=== PATIENT | female | born 1965 | race Caucasian/White ===

== ENCOUNTER 2023-01-19 11:15 | Inpatient (IN) | payer OTHER ==
[2023-01-19 11:46] VITALS: BMI 18.8
[2023-01-19] MEDS ORDERED: guaiFENesin 600 MG TABLET.ER (FP) PO PRN (12:28)
[2023-01-19] MEDS ORDERED: ONDANSETRON *ODT* 4 MG TABLET SL PRN (12:28)
[2023-01-19] MEDS ORDERED: ACETAMINOPHEN 325 MG TABLET (FP) PO PRN (12:28)
[2023-01-19] MEDS ORDERED: MAGNESIUM HYDROX 2400MG/30ML ORAL SUSPENSION 30 ML CUP PO PRN (12:28)
[2023-01-19] MEDS ORDERED: LOPERAMIDE HCL 2 MG CAPSULE PO PRN (12:28)
[2023-01-19] MEDS ORDERED: BISMUTH SUBSALICYLATE 262 MG/15 ML BTL PO PRN (12:28)
[2023-01-19] MEDS ORDERED: MAG HYDROX/AL HYDROX/SIMETH 30 ML UNIT-DOSE CUP PO PRN (12:28)
[2023-01-19] MEDS ORDERED: BENZOCAINE/MENTHOL (CHLORASEPTIC ) LOZENGE MM PRN (12:28)
[2023-01-19] MEDS ORDERED: NALOXONE HCL (KLOXXADO) 8 MG SPRAY NS PRN (12:28)
[2023-01-19] MEDS ORDERED: IBUPROFEN 400 MG TABLET (FP) PO PRN (12:28)
[2023-01-19] MEDS ORDERED: POLYETHYLENE GLYCOL (HEALTHYLAX) 3350 17 GM PACKET PO PRN (12:28)
[2023-01-19] MEDS ORDERED: BENZONATATE 200 MG CAPSULE PO PRN (12:28)
[2023-01-19] MEDS ORDERED: IBUPROFEN 600 MG TABLET (FP) PO PRN (12:28)
[2023-01-19] MEDS ORDERED: NALOXONE HCL 0.4 MG/ML VIAL IM PRN (12:28)
[2023-01-19] MEDS ORDERED: hydrOXYzine PAMOATE 25 MG CAPSULE (FP) PO PRN (12:28)
[2023-01-19] MEDS ORDERED: NICOTINE POLACRILEX 2 MG GUM BUC PRN (12:28)
[2023-01-19] MEDS: chlordiazePOXIDE HCL 25 MG CAPSULE PO PRN (13:59)
[2023-01-19] MEDS: chlordiazePOXIDE HCL 25 MG CAPSULE PO SCH ×2 (17:36→22:10)
[2023-01-19] MEDS: MELATONIN 5 MG TABLETS PO SCH (22:09)
[2023-01-19] MEDS: traZODone HCL 50 MG TABLET (FP) PO SCH (22:09)
[2023-01-19] MEDS: THIAMINE HCL 100 MG TABLET (FP) PO SCH (22:09)
[2023-01-20] MEDS: chlordiazePOXIDE HCL 25 MG CAPSULE PO SCH ×4 (05:45→22:17)
[2023-01-20] MEDS ORDERED: methaDONE HCL 10 MG TABLET PO SCH (07:37)
[2023-01-20 09:30] LABS: HEMATOCRIT 34.9 % (32.4-45.2); HEMOGLOBIN 11.6 GM/dL (10.7-15.3); MCH 28.2 pg (25.7-33.7); MCHC 33.4 g/dl (32.0-36.0); MEAN CELL VOLUME 84.3 fl (80-96); MEAN PLT VOLUME 7.8 fl (7.5-11.1); PLATELET COUNT 220 10^3/uL (134-434); RBC 4.13 M/mm3 (3.60-5.2); RDW 16.4 % (11.6-15.6); WHITE BLOOD COUNT 3.6 K/mm3 (4.0-10.0)
[2023-01-20 09:54] LABS: CALCIUM 8.7 mg/dL (8.5-10.1)
[2023-01-20 09:56] LABS: ALBUMIN 2.7 g/dl (3.4-5.0); BLOOD UREA NITROGEN 18.6 mg/dL (7-18)
[2023-01-20 09:58] LABS: CREATININE 0.6 mg/dL (0.55-1.3)
[2023-01-20 10:00] LABS: BILIRUBIN,TOTAL 0.1 mg/dL (0.2-1); TOT PROT 6.4 g/dl (6.4-8.2)
[2023-01-20] MEDS: NICOTINE 14 MG/24 HOURS TOPICAL PATCH TD SCH (10:47)
[2023-01-20] MEDS: PRENATAL VITAMINS W/ FOLIC ACID TABLET (FP) PO SCH (10:47)
[2023-01-20 12:01] LABS: POTASSIUM 4.1 mmol/L (3.5-5.1)
[2023-01-20] MEDS: chlordiazePOXIDE HCL 25 MG CAPSULE PO PRN (19:20)
[2023-01-20] MEDS: THIAMINE HCL 100 MG TABLET (FP) PO SCH (22:16)
[2023-01-20] MEDS: traZODone HCL 50 MG TABLET (FP) PO SCH (22:16)
[2023-01-20] MEDS: MELATONIN 5 MG TABLETS PO SCH (22:16)
[2023-01-21] MEDS: chlordiazePOXIDE HCL 25 MG CAPSULE PO SCH ×3 (05:37→18:51)
[2023-01-21 09:11] VITALS: RESP 18
[2023-01-21] MEDS: PRENATAL VITAMINS W/ FOLIC ACID TABLET (FP) PO SCH (10:23)
[2023-01-21] MEDS: NICOTINE 14 MG/24 HOURS TOPICAL PATCH TD SCH (10:23)
[2023-01-21 13:02] VITALS: BP 98/64; PULSE 64; TEMP 96.7
[2023-01-22] MEDS ORDERED: chlordiazePOXIDE HCL 10 MG CAPSULE PO PRN
[2023-01-22] MEDS ORDERED: chlordiazePOXIDE HCL 10 MG CAPSULE PO SCH (05:00)
[2023-01-23] MEDS ORDERED: chlordiazePOXIDE HCL 10 MG CAPSULE PO SCH (05:00)
[2023-01-24] MEDS ORDERED: chlordiazePOXIDE HCL 10 MG CAPSULE PO ONE (05:00)
== END 2023-01-21 16:08 | disposition left against medical advice (07) | DRG 770 ==
LOC: YASAS 11:15 → Y3N 13:07
PROVIDERS: ADMIT Allergy & Immunology; ATTEND Surgery
PROC: HZ2ZZZZ Detoxification Services for Substance Abuse Treatment (ICD-10-PCS; principal; 2023-01-19)
DX: F10.230 Alcohol dependence with withdrawal, uncomplicated (principal); F11.20 Opioid dependence, uncomplicated; F14.20 Cocaine dependence, uncomplicated; F17.210 Nicotine dependence, cigarettes, uncomplicated; F31.9 Bipolar disorder, unspecified; F41.9 Anxiety disorder, unspecified; G47.00 Insomnia, unspecified; J45.20 Mild intermittent asthma, uncomplicated; Z87.828 Personal history of other (healed) physical injury and trauma
CPT/HCPCS: 36415; 80053; 85027; 86780; 87635; 93005; 93010

== ENCOUNTER 2023-02-16 13:37 | Inpatient (IN) | payer OTHER ==
[2023-02-16 14:36] VITALS: BMI 18.3
[2023-02-16] MEDS ORDERED: NALOXONE HCL 0.4 MG/ML VIAL IM PRN (15:32)
[2023-02-16] MEDS ORDERED: LOPERAMIDE HCL 2 MG CAPSULE PO PRN (15:32)
[2023-02-16] MEDS ORDERED: ACETAMINOPHEN 325 MG TABLET (FP) PO PRN (15:32)
[2023-02-16] MEDS ORDERED: NALOXONE HCL (KLOXXADO) 8 MG SPRAY NS PRN (15:32)
[2023-02-16] MEDS ORDERED: NICOTINE POLACRILEX 2 MG GUM BUC PRN (15:32)
[2023-02-16] MEDS ORDERED: guaiFENesin 600 MG TABLET.ER (FP) PO PRN (15:32)
[2023-02-16] MEDS ORDERED: ONDANSETRON *ODT* 4 MG TABLET SL PRN (15:32)
[2023-02-16] MEDS ORDERED: BENZONATATE 200 MG CAPSULE PO PRN (15:32)
[2023-02-16] MEDS ORDERED: MAG HYDROX/AL HYDROX/SIMETH 30 ML UNIT-DOSE CUP PO PRN (15:32)
[2023-02-16] MEDS ORDERED: IBUPROFEN 400 MG TABLET (FP) PO PRN (15:32)
[2023-02-16] MEDS ORDERED: BISMUTH SUBSALICYLATE 262 MG/15 ML BTL PO PRN (15:32)
[2023-02-16] MEDS ORDERED: POLYETHYLENE GLYCOL (HEALTHYLAX) 3350 17 GM PACKET PO PRN (15:32)
[2023-02-16] MEDS ORDERED: MAGNESIUM HYDROX 2400MG/30ML ORAL SUSPENSION 30 ML CUP PO PRN (15:32)
[2023-02-16] MEDS ORDERED: BENZOCAINE/MENTHOL (CHLORASEPTIC ) LOZENGE MM PRN (15:32)
[2023-02-16] MEDS ORDERED: chlordiazePOXIDE HCL 25 MG CAPSULE PO PRN (15:37)
[2023-02-16] MEDS: chlordiazePOXIDE HCL 25 MG CAPSULE PO SCH ×2 (17:39→22:30)
[2023-02-16] MEDS: hydrOXYzine PAMOATE 25 MG CAPSULE (FP) PO PRN (17:40)
[2023-02-16] MEDS: IBUPROFEN 600 MG TABLET (FP) PO PRN (20:35)
[2023-02-16] MEDS ORDERED: MELATONIN 5 MG TABLETS PO SCH (22:00)
[2023-02-16] MEDS: THIAMINE HCL 100 MG TABLET (FP) PO SCH (22:30)
[2023-02-16] MEDS: METHOCARBAMOL 500 MG TABLET PO PRN (22:31)
[2023-02-17] MEDS: chlordiazePOXIDE HCL 25 MG CAPSULE PO SCH ×4 (05:35→22:20)
[2023-02-17] MEDS: PRENATAL VITAMINS W/ FOLIC ACID TABLET (FP) PO SCH (10:31)
[2023-02-17 10:36] LABS: CHLORIDE 102 mmol/L (98-107); SODIUM 137 mmol/L (136-145)
[2023-02-17] MEDS ORDERED: DICYCLOMINE HCL 10 MG CAPSULE PO ONE (10:38)
[2023-02-17 10:39] LABS: HEMATOCRIT 38.1 % (32.4-45.2); HEMOGLOBIN 12.6 GM/dL (10.7-15.3); MCH 27.9 pg (25.7-33.7); MEAN CELL VOLUME 84.5 fl (80-96); MEAN PLT VOLUME 7.8 fl (7.5-11.1); PLATELET COUNT 260 10^3/uL (134-434); RBC 4.51 M/mm3 (3.60-5.2); RDW 16.3 % (11.6-15.6)
[2023-02-17 10:46] LABS: ALBUMIN 2.9 g/dl (3.4-5.0); ANION GAP 7 mmol/L (4-13); BLOOD UREA NITROGEN 19.4 mg/dL (7-18); CO2 28 mmol/L (21-32); GLUCOSE,RANDOM 127 mg/dL (74-106)
[2023-02-17 10:49] LABS: CREATININE 0.8 mg/dL (0.55-1.3); SGOT/AST 13 U/L (15-37); SGPT/ALT 10 U/L (13-61)
[2023-02-17 10:51] LABS: BILIRUBIN,TOTAL 0.9 mg/dL (0.2-1); TOT PROT 6.7 g/dl (6.4-8.2)
[2023-02-17 10:52] LABS: ALK PHOS 67 U/L (45-117)
[2023-02-17] MEDS ORDERED: methaDONE HCL 10 MG TABLET PO ONE (11:05)
[2023-02-17] MEDS: hydrOXYzine PAMOATE 25 MG CAPSULE (FP) PO PRN ×2 (17:16→22:21)
[2023-02-17] MEDS: traZODone HCL 50 MG TABLET (FP) PO SCH (22:19)
[2023-02-17] MEDS: THIAMINE HCL 100 MG TABLET (FP) PO SCH (22:20)
[2023-02-18] MEDS: chlordiazePOXIDE HCL 25 MG CAPSULE PO SCH ×4 (05:35→22:44)
[2023-02-18] MEDS ORDERED: methaDONE HCL 10 MG TABLET PO SCH (06:00)
[2023-02-18] MEDS: PRENATAL VITAMINS W/ FOLIC ACID TABLET (FP) PO SCH (11:37)
[2023-02-18] MEDS: SULFAMETHOXAZOLE/TRIMETHOPRIM 800MG/160MG D.S. TABLET PO SCH ×2 (11:38→22:44)
[2023-02-18] MEDS: VITAMINS A AND D TOPICAL OINTMENT 60 GM TUBE TP SCH ×2 (13:05→18:16)
[2023-02-18] MEDS: hydrOXYzine PAMOATE 25 MG CAPSULE (FP) PO PRN (17:47)
[2023-02-18] MEDS: IBUPROFEN 600 MG TABLET (FP) PO PRN (19:42)
[2023-02-18] MEDS: traZODone HCL 50 MG TABLET (FP) PO SCH (22:44)
[2023-02-18] MEDS: THIAMINE HCL 100 MG TABLET (FP) PO SCH (22:44)
[2023-02-19] MEDS ORDERED: chlordiazePOXIDE HCL 10 MG CAPSULE PO PRN
[2023-02-19] MEDS: VITAMINS A AND D TOPICAL OINTMENT 60 GM TUBE TP SCH ×5 (00:40→23:13)
[2023-02-19] MEDS: chlordiazePOXIDE HCL 10 MG CAPSULE PO SCH ×4 (05:32→22:37)
[2023-02-19] MEDS: PRENATAL VITAMINS W/ FOLIC ACID TABLET (FP) PO SCH (10:28)
[2023-02-19] MEDS: SULFAMETHOXAZOLE/TRIMETHOPRIM 800MG/160MG D.S. TABLET PO SCH ×2 (10:28→22:37)
[2023-02-19] MEDS: IBUPROFEN 600 MG TABLET (FP) PO PRN (10:32)
[2023-02-19] MEDS: hydrOXYzine PAMOATE 25 MG CAPSULE (FP) PO PRN ×3 (14:47→22:38)
[2023-02-19] MEDS: METHOCARBAMOL 500 MG TABLET PO PRN ×2 (17:21→22:37)
[2023-02-19] MEDS: traZODone HCL 50 MG TABLET (FP) PO SCH (22:37)
[2023-02-19] MEDS: THIAMINE HCL 100 MG TABLET (FP) PO SCH (22:37)
[2023-02-20] MEDS: chlordiazePOXIDE HCL 10 MG CAPSULE PO SCH ×2 (05:46→17:09)
[2023-02-20] MEDS: VITAMINS A AND D TOPICAL OINTMENT 60 GM TUBE TP SCH ×3 (05:57→17:27)
[2023-02-20] MEDS: SULFAMETHOXAZOLE/TRIMETHOPRIM 800MG/160MG D.S. TABLET PO SCH ×2 (09:29→22:31)
[2023-02-20] MEDS: PRENATAL VITAMINS W/ FOLIC ACID TABLET (FP) PO SCH (09:29)
[2023-02-20] MEDS: hydrOXYzine PAMOATE 25 MG CAPSULE (FP) PO PRN (17:10)
[2023-02-20] MEDS: METHOCARBAMOL 500 MG TABLET PO PRN ×2 (17:10→22:31)
[2023-02-20] MEDS: THIAMINE HCL 100 MG TABLET (FP) PO SCH (22:31)
[2023-02-20] MEDS: traZODone HCL 50 MG TABLET (FP) PO SCH (22:31)
[2023-02-21] MEDS: VITAMINS A AND D TOPICAL OINTMENT 60 GM TUBE TP SCH ×3 (00:58→12:19)
[2023-02-21] MEDS ORDERED: chlordiazePOXIDE HCL 10 MG CAPSULE PO ONE (05:00)
[2023-02-21] MEDS: SULFAMETHOXAZOLE/TRIMETHOPRIM 800MG/160MG D.S. TABLET PO SCH (09:30)
[2023-02-21] MEDS: PRENATAL VITAMINS W/ FOLIC ACID TABLET (FP) PO SCH (09:30)
[2023-02-21 12:32] VITALS: BP 123/75; PULSE 79; RESP 18; TEMP 97.8
== END 2023-02-21 12:58 | disposition home or self-care (01) | DRG 773 ==
LOC: YASAS 13:37 → Y6N 16:27
PROVIDERS: ADMIT Allergy & Immunology; ATTEND Surgery
PROC: HZ2ZZZZ Detoxification Services for Substance Abuse Treatment (ICD-10-PCS; principal; 2023-02-16)
DX: F10.230 Alcohol dependence with withdrawal, uncomplicated (principal); F11.20 Opioid dependence, uncomplicated; F14.20 Cocaine dependence, uncomplicated; F12.20 Cannabis dependence, uncomplicated; F17.210 Nicotine dependence, cigarettes, uncomplicated; F19.282 Other psychoactive substance dependence with psychoactive substance-induced sleep disorder; F19.280 Other psychoactive substance dependence with psychoactive substance-induced anxiety disorder; F39 Unspecified mood [affective] disorder; F41.9 Anxiety disorder, unspecified; J45.20 Mild intermittent asthma, uncomplicated; Z62.810 Personal history of physical and sexual abuse in childhood; Z91.410 Personal history of adult physical and sexual abuse; Z86.2 Personal history of diseases of the blood and blood-forming organs and certain disorders involving the immune mechanism
CPT/HCPCS: 36415; 80053; 80307; 85027; 86780; 87635

== ENCOUNTER 2023-03-02 10:59 | Inpatient (IN) | payer OTHER ==
[2023-03-02 11:25] VITALS: BMI 19.3
[2023-03-02] MEDS ORDERED: LOPERAMIDE HCL 2 MG CAPSULE PO PRN (12:13)
[2023-03-02] MEDS ORDERED: guaiFENesin 600 MG TABLET.ER (FP) PO PRN (12:13)
[2023-03-02] MEDS ORDERED: MAGNESIUM HYDROX 2400MG/30ML ORAL SUSPENSION 30 ML CUP PO PRN (12:13)
[2023-03-02] MEDS ORDERED: DICYCLOMINE HCL 10 MG CAPSULE PO PRN (12:13)
[2023-03-02] MEDS ORDERED: POLYETHYLENE GLYCOL (HEALTHYLAX) 3350 17 GM PACKET PO PRN (12:13)
[2023-03-02] MEDS ORDERED: BENZONATATE 200 MG CAPSULE PO PRN (12:13)
[2023-03-02] MEDS ORDERED: NICOTINE POLACRILEX 4 MG GUM BUC PRN (12:13)
[2023-03-02] MEDS ORDERED: BISMUTH SUBSALICYLATE 262 MG/15 ML BTL PO PRN (12:13)
[2023-03-02] MEDS ORDERED: IBUPROFEN 400 MG TABLET (FP) PO PRN (12:13)
[2023-03-02] MEDS ORDERED: BENZOCAINE/MENTHOL (CHLORASEPTIC ) LOZENGE MM PRN (12:13)
[2023-03-02] MEDS ORDERED: MAG HYDROX/AL HYDROX/SIMETH 30 ML UNIT-DOSE CUP PO PRN (12:13)
[2023-03-02] MEDS ORDERED: NALOXONE HCL 0.4 MG/ML VIAL IM PRN (12:13)
[2023-03-02] MEDS ORDERED: ONDANSETRON *ODT* 4 MG TABLET SL PRN (12:13)
[2023-03-02] MEDS ORDERED: ACETAMINOPHEN 325 MG TABLET (FP) PO PRN (12:13)
[2023-03-02] MEDS ORDERED: NALOXONE HCL (KLOXXADO) 8 MG SPRAY NS PRN (12:13)
[2023-03-02] MEDS ORDERED: hydrOXYzine PAMOATE 25 MG CAPSULE (FP) PO PRN (12:13)
[2023-03-02] MEDS ORDERED: PRENATAL VITAMINS W/ FOLIC ACID TABLET (FP) PO ONE (13:32)
[2023-03-02] MEDS: PRENATAL VITAMINS W/ FOLIC ACID TABLET (FP) PO SCH (13:40)
[2023-03-02] MEDS: chlordiazePOXIDE HCL 25 MG CAPSULE PO PRN (14:23)
[2023-03-02] MEDS: chlordiazePOXIDE HCL 25 MG CAPSULE PO SCH ×2 (17:48→22:26)
[2023-03-02] MEDS: MELATONIN 5 MG TABLETS PO SCH (22:24)
[2023-03-02] MEDS: traZODone HCL 50 MG TABLET (FP) PO SCH (22:25)
[2023-03-02] MEDS: THIAMINE HCL 100 MG TABLET (FP) PO SCH (22:25)
[2023-03-03] MEDS: chlordiazePOXIDE HCL 25 MG CAPSULE PO SCH ×4 (05:40→22:55)
[2023-03-03] MEDS ORDERED: methaDONE HCL 10 MG TABLET PO SCH (06:00)
[2023-03-03] MEDS: IBUPROFEN 600 MG TABLET (FP) PO PRN ×2 (08:59→20:15)
[2023-03-03] MEDS: PRENATAL VITAMINS W/ FOLIC ACID TABLET (FP) PO SCH (10:10)
[2023-03-03 11:56] LABS: POTASSIUM 4.3 mmol/L (3.5-5.1)
[2023-03-03 12:02] LABS: ALBUMIN 3.2 g/dl (3.4-5.0); BLOOD UREA NITROGEN 16.3 mg/dL (7-18)
[2023-03-03 12:04] LABS: HEMATOCRIT 37.2 % (32.4-45.2); HEMOGLOBIN 12.2 GM/dL (10.7-15.3); MCHC 32.9 g/dl (32.0-36.0); MEAN CELL VOLUME 85.1 fl (80-96); PLATELET COUNT 306 10^3/uL (134-434); RBC 4.37 M/mm3 (3.60-5.2); RDW 16.3 % (11.6-15.6); WHITE BLOOD COUNT 4.3 K/mm3 (4.0-10.0)
[2023-03-03 12:05] LABS: CREATININE 0.7 mg/dL (0.55-1.3)
[2023-03-03 12:06] LABS: BILIRUBIN,TOTAL 0.3 mg/dL (0.2-1); TOT PROT 7.4 g/dl (6.4-8.2)
[2023-03-03] MEDS: THIAMINE HCL 100 MG TABLET (FP) PO SCH (22:23)
[2023-03-03] MEDS: traZODone HCL 50 MG TABLET (FP) PO SCH (22:23)
[2023-03-03] MEDS: MELATONIN 5 MG TABLETS PO SCH (22:23)
[2023-03-03] MEDS: chlordiazePOXIDE HCL 25 MG CAPSULE PO PRN (23:47)
[2023-03-04] MEDS: chlordiazePOXIDE HCL 25 MG CAPSULE PO SCH ×4 (06:06→22:14)
[2023-03-04] MEDS: PRENATAL VITAMINS W/ FOLIC ACID TABLET (FP) PO SCH (10:16)
[2023-03-04] MEDS: MELATONIN 5 MG TABLETS PO SCH (22:14)
[2023-03-04] MEDS: THIAMINE HCL 100 MG TABLET (FP) PO SCH (22:14)
[2023-03-04] MEDS: traZODone HCL 50 MG TABLET (FP) PO SCH (22:14)
[2023-03-05] MEDS ORDERED: chlordiazePOXIDE HCL 10 MG CAPSULE PO PRN
[2023-03-05] MEDS: METHOCARBAMOL 500 MG TABLET PO PRN ×3 (01:12→17:33)
[2023-03-05] MEDS: chlordiazePOXIDE HCL 10 MG CAPSULE PO SCH ×4 (05:32→22:15)
[2023-03-05] MEDS: IBUPROFEN 600 MG TABLET (FP) PO PRN (06:58)
[2023-03-05] MEDS: PRENATAL VITAMINS W/ FOLIC ACID TABLET (FP) PO SCH (10:03)
[2023-03-05] MEDS: traZODone HCL 50 MG TABLET (FP) PO SCH (22:15)
[2023-03-05] MEDS: MELATONIN 5 MG TABLETS PO SCH (22:15)
[2023-03-05] MEDS: THIAMINE HCL 100 MG TABLET (FP) PO SCH (22:15)
[2023-03-06] MEDS: chlordiazePOXIDE HCL 10 MG CAPSULE PO SCH ×2 (05:57→17:51)
[2023-03-06] MEDS: IBUPROFEN 600 MG TABLET (FP) PO PRN (06:00)
[2023-03-06] MEDS: PRENATAL VITAMINS W/ FOLIC ACID TABLET (FP) PO SCH (10:45)
[2023-03-06] MEDS ORDERED: traZODone HCL 50 MG TABLET (FP) PO SCH (22:00)
[2023-03-06] MEDS: MELATONIN 5 MG TABLETS PO SCH (22:19)
[2023-03-06] MEDS: THIAMINE HCL 100 MG TABLET (FP) PO SCH (22:19)
[2023-03-06] MEDS: METHOCARBAMOL 500 MG TABLET PO PRN (22:19)
[2023-03-07] MEDS ORDERED: chlordiazePOXIDE HCL 10 MG CAPSULE PO ONE (05:00)
[2023-03-07 09:38] VITALS: RESP 18
[2023-03-07] MEDS: PRENATAL VITAMINS W/ FOLIC ACID TABLET (FP) PO SCH (09:45)
[2023-03-07 17:02] VITALS: BP 93/80; PULSE 67; TEMP 97.8
== END 2023-03-07 18:12 | disposition other institution (70) | DRG 773 ==
LOC: YASAS 10:59 → Y3N 13:37
PROVIDERS: ADMIT Allergy & Immunology; ATTEND Surgery
PROC: HZ2ZZZZ Detoxification Services for Substance Abuse Treatment (ICD-10-PCS; principal; 2023-03-02)
DX: F10.230 Alcohol dependence with withdrawal, uncomplicated (principal); F11.20 Opioid dependence, uncomplicated; F14.20 Cocaine dependence, uncomplicated; F17.210 Nicotine dependence, cigarettes, uncomplicated; F19.280 Other psychoactive substance dependence with psychoactive substance-induced anxiety disorder; F19.282 Other psychoactive substance dependence with psychoactive substance-induced sleep disorder; F31.9 Bipolar disorder, unspecified; F39 Unspecified mood [affective] disorder; G47.00 Insomnia, unspecified; J45.20 Mild intermittent asthma, uncomplicated; Z86.2 Personal history of diseases of the blood and blood-forming organs and certain disorders involving the immune mechanism; Z62.810 Personal history of physical and sexual abuse in childhood; Z91.410 Personal history of adult physical and sexual abuse
CPT/HCPCS: 36415; 80053; 80305; 80307; 81025; 85027; 86780; 87635; 87811; 93005; 93010

== ENCOUNTER 2023-03-07 18:18 | Inpatient (IN) | payer OTHER ==
[2023-03-07] MEDS ORDERED: MAG HYDROX/AL HYDROX/SIMETH 30 ML UNIT-DOSE CUP PO PRN (19:40)
[2023-03-07] MEDS ORDERED: MAGNESIUM HYDROX 2400MG/30ML ORAL SUSPENSION 30 ML CUP PO PRN (19:40)
[2023-03-07] MEDS ORDERED: LOPERAMIDE HCL 2 MG CAPSULE PO PRN (19:40)
[2023-03-07] MEDS ORDERED: BENZONATATE 200 MG CAPSULE PO PRN (19:40)
[2023-03-07] MEDS ORDERED: POLYETHYLENE GLYCOL (HEALTHYLAX) 3350 17 GM PACKET PO PRN (19:40)
[2023-03-07] MEDS ORDERED: BENZOCAINE/MENTHOL (CHLORASEPTIC ) LOZENGE MM PRN (19:40)
[2023-03-07] MEDS ORDERED: NALOXONE HCL 0.4 MG/ML VIAL IVPUSH PRN (19:40)
[2023-03-07] MEDS ORDERED: NALOXONE HCL (KLOXXADO) 8 MG SPRAY NS PRN (19:40)
[2023-03-07] MEDS ORDERED: COLLOIDAL OATMEAL 1 BAR EACH TP PRN (19:40)
[2023-03-07] MEDS ORDERED: METHOCARBAMOL 500 MG TABLET PO PRN (19:40)
[2023-03-07] MEDS ORDERED: ACETAMINOPHEN 325 MG TABLET (FP) PO PRN (19:40)
[2023-03-07] MEDS ORDERED: guaiFENesin 600 MG TABLET.ER (FP) PO PRN (19:40)
[2023-03-07] MEDS: MELATONIN 5 MG TABLETS PO SCH (21:02)
[2023-03-07] MEDS: THIAMINE HCL 100 MG TABLET (FP) PO SCH (21:02)
[2023-03-07] MEDS: hydrOXYzine PAMOATE 25 MG CAPSULE (FP) PO PRN (21:03)
[2023-03-08] MEDS ORDERED: methaDONE HCL 10 MG TABLET PO SCH (06:00)
[2023-03-08] MEDS: PRENATAL VITAMINS W/ FOLIC ACID TABLET (FP) PO SCH (09:47)
[2023-03-08] MEDS: MELATONIN 5 MG TABLETS PO SCH (21:23)
[2023-03-08] MEDS: THIAMINE HCL 100 MG TABLET (FP) PO SCH (21:24)
[2023-03-09] MEDS: PRENATAL VITAMINS W/ FOLIC ACID TABLET (FP) PO SCH (09:54)
[2023-03-09] MEDS: SODIUM CHLORIDE NASAL SPRAY 44 ML BOTTLE NS PRN (14:39)
[2023-03-09] MEDS: MELATONIN 5 MG TABLETS PO SCH (21:08)
[2023-03-09] MEDS: THIAMINE HCL 100 MG TABLET (FP) PO SCH (21:08)
[2023-03-10] MEDS: hydrOXYzine PAMOATE 25 MG CAPSULE (FP) PO PRN (04:09)
[2023-03-10] MEDS: PRENATAL VITAMINS W/ FOLIC ACID TABLET (FP) PO SCH (10:14)
[2023-03-10] MEDS: SODIUM CHLORIDE NASAL SPRAY 44 ML BOTTLE NS PRN (10:15)
[2023-03-10] MEDS: IBUPROFEN 400 MG TABLET (FP) PO PRN (20:15)
[2023-03-10] MEDS: THIAMINE HCL 100 MG TABLET (FP) PO SCH (21:22)
[2023-03-10] MEDS: traZODone HCL 50 MG TABLET (FP) PO SCH (21:22)
[2023-03-10] MEDS: MELATONIN 5 MG TABLETS PO SCH (21:22)
[2023-03-11] MEDS: PRENATAL VITAMINS W/ FOLIC ACID TABLET (FP) PO SCH (10:00)
[2023-03-11] MEDS: THIAMINE HCL 100 MG TABLET (FP) PO SCH (21:21)
[2023-03-11] MEDS: MELATONIN 5 MG TABLETS PO SCH (21:21)
[2023-03-11] MEDS: traZODone HCL 50 MG TABLET (FP) PO SCH (21:21)
[2023-03-12] MEDS: IBUPROFEN 600 MG TABLET (FP) PO PRN ×2 (09:47→21:40)
[2023-03-12] MEDS: PRENATAL VITAMINS W/ FOLIC ACID TABLET (FP) PO SCH (09:47)
[2023-03-12] MEDS: traZODone HCL 50 MG TABLET (FP) PO SCH (21:39)
[2023-03-12] MEDS: THIAMINE HCL 100 MG TABLET (FP) PO SCH (21:39)
[2023-03-12] MEDS: MELATONIN 5 MG TABLETS PO SCH (21:39)
[2023-03-13] MEDS: PRENATAL VITAMINS W/ FOLIC ACID TABLET (FP) PO SCH (09:32)
[2023-03-13] MEDS: MELATONIN 5 MG TABLETS PO SCH (21:55)
[2023-03-13] MEDS: traZODone HCL 50 MG TABLET (FP) PO SCH (21:56)
[2023-03-13] MEDS: THIAMINE HCL 100 MG TABLET (FP) PO SCH (21:56)
[2023-03-13] MEDS: IBUPROFEN 600 MG TABLET (FP) PO PRN (23:29)
[2023-03-14] MEDS: PRENATAL VITAMINS W/ FOLIC ACID TABLET (FP) PO SCH (10:05)
[2023-03-14] MEDS: IBUPROFEN 600 MG TABLET (FP) PO PRN ×2 (10:06→21:32)
[2023-03-14] MEDS: traZODone HCL 50 MG TABLET (FP) PO SCH (21:31)
[2023-03-14] MEDS: THIAMINE HCL 100 MG TABLET (FP) PO SCH (21:32)
[2023-03-14] MEDS: MELATONIN 5 MG TABLETS PO SCH (21:32)
[2023-03-15] MEDS: PRENATAL VITAMINS W/ FOLIC ACID TABLET (FP) PO SCH (10:14)
[2023-03-15] MEDS: SODIUM CHLORIDE NASAL SPRAY 44 ML BOTTLE NS PRN (10:15)
[2023-03-15] MEDS: IBUPROFEN 600 MG TABLET (FP) PO PRN (10:15)
[2023-03-15] MEDS: IBUPROFEN 400 MG TABLET (FP) PO PRN (21:27)
[2023-03-15] MEDS: THIAMINE HCL 100 MG TABLET (FP) PO SCH (21:27)
[2023-03-15] MEDS: MELATONIN 5 MG TABLETS PO SCH (21:29)
[2023-03-15] MEDS: traZODone HCL 50 MG TABLET (FP) PO SCH (21:30)
[2023-03-16] MEDS: PRENATAL VITAMINS W/ FOLIC ACID TABLET (FP) PO SCH (10:06)
[2023-03-16] MEDS: IBUPROFEN 600 MG TABLET (FP) PO PRN (10:07)
[2023-03-16] MEDS: THIAMINE HCL 100 MG TABLET (FP) PO SCH (21:03)
[2023-03-16] MEDS: MELATONIN 5 MG TABLETS PO SCH (21:03)
[2023-03-16] MEDS: traZODone HCL 50 MG TABLET (FP) PO SCH (21:04)
[2023-03-16] MEDS: IBUPROFEN 400 MG TABLET (FP) PO PRN (21:05)
[2023-03-16] MEDS: LIDOCAINE PATCH REMOVAL MC SCH (21:05)
[2023-03-17] MEDS: LIDOCAINE 4% PATCH TP SCH (10:08)
[2023-03-17] MEDS: PRENATAL VITAMINS W/ FOLIC ACID TABLET (FP) PO SCH (10:08)
[2023-03-17] MEDS: IBUPROFEN 600 MG TABLET (FP) PO PRN ×2 (10:09→21:25)
[2023-03-17] MEDS: SODIUM CHLORIDE NASAL SPRAY 44 ML BOTTLE NS PRN (10:09)
[2023-03-17] MEDS: MELATONIN 5 MG TABLETS PO SCH (21:24)
[2023-03-17] MEDS: traZODone HCL 50 MG TABLET (FP) PO SCH (21:24)
[2023-03-17] MEDS: THIAMINE HCL 100 MG TABLET (FP) PO SCH (21:25)
[2023-03-17] MEDS: LIDOCAINE PATCH REMOVAL MC SCH (21:29)
[2023-03-18] MEDS: PRENATAL VITAMINS W/ FOLIC ACID TABLET (FP) PO SCH (09:53)
[2023-03-18] MEDS: LIDOCAINE 4% PATCH TP SCH (09:53)
[2023-03-18] MEDS: IBUPROFEN 600 MG TABLET (FP) PO PRN ×2 (09:55→21:38)
[2023-03-18] MEDS: THIAMINE HCL 100 MG TABLET (FP) PO SCH (21:37)
[2023-03-18] MEDS: traZODone HCL 50 MG TABLET (FP) PO SCH (21:37)
[2023-03-18] MEDS: MELATONIN 5 MG TABLETS PO SCH (21:38)
[2023-03-18] MEDS: LIDOCAINE PATCH REMOVAL MC SCH (21:45)
[2023-03-19] MEDS: SODIUM CHLORIDE NASAL SPRAY 44 ML BOTTLE NS PRN (10:11)
[2023-03-19] MEDS: PRENATAL VITAMINS W/ FOLIC ACID TABLET (FP) PO SCH (10:11)
[2023-03-19] MEDS: LIDOCAINE 4% PATCH TP SCH (10:11)
[2023-03-19] MEDS: IBUPROFEN 600 MG TABLET (FP) PO PRN ×2 (10:12→21:32)
[2023-03-19] MEDS: MELATONIN 5 MG TABLETS PO SCH (21:30)
[2023-03-19] MEDS: LIDOCAINE PATCH REMOVAL MC SCH (21:30)
[2023-03-19] MEDS: traZODone HCL 50 MG TABLET (FP) PO SCH (21:30)
[2023-03-19] MEDS: THIAMINE HCL 100 MG TABLET (FP) PO SCH (21:30)
[2023-03-20] MEDS: IBUPROFEN 600 MG TABLET (FP) PO PRN ×2 (10:20→21:09)
[2023-03-20] MEDS: LIDOCAINE 4% PATCH TP SCH (10:20)
[2023-03-20] MEDS: PRENATAL VITAMINS W/ FOLIC ACID TABLET (FP) PO SCH (10:21)
[2023-03-20] MEDS: LIDOCAINE PATCH REMOVAL MC SCH (21:07)
[2023-03-20] MEDS: traZODone HCL 50 MG TABLET (FP) PO SCH (21:08)
[2023-03-20] MEDS: THIAMINE HCL 100 MG TABLET (FP) PO SCH (21:08)
[2023-03-20] MEDS: MELATONIN 5 MG TABLETS PO SCH (21:08)
[2023-03-21] MEDS: LIDOCAINE 4% PATCH TP SCH (09:59)
[2023-03-21] MEDS: IBUPROFEN 600 MG TABLET (FP) PO PRN (09:59)
[2023-03-21] MEDS: PRENATAL VITAMINS W/ FOLIC ACID TABLET (FP) PO SCH (09:59)
[2023-03-21] MEDS ORDERED: AMMONIUM LACTATE 12% LOTION 225 GM BOTTLE TP PRN (14:29)
[2023-03-21] MEDS: THIAMINE HCL 100 MG TABLET (FP) PO SCH (21:13)
[2023-03-21] MEDS: MELATONIN 5 MG TABLETS PO SCH (21:13)
[2023-03-21] MEDS: traZODone HCL 50 MG TABLET (FP) PO SCH (21:14)
[2023-03-21] MEDS: IBUPROFEN 400 MG TABLET (FP) PO PRN (21:15)
[2023-03-21] MEDS: LIDOCAINE PATCH REMOVAL MC SCH (21:59)
[2023-03-22] MEDS ORDERED: methaDONE HCL 10 MG TABLET PO SCH (06:00)
[2023-03-22] MEDS: PRENATAL VITAMINS W/ FOLIC ACID TABLET (FP) PO SCH (09:58)
[2023-03-22] MEDS: LIDOCAINE 4% PATCH TP SCH (09:58)
[2023-03-22] MEDS: LIDOCAINE PATCH REMOVAL MC SCH (22:04)
[2023-03-22] MEDS: THIAMINE HCL 100 MG TABLET (FP) PO SCH (22:04)
[2023-03-22] MEDS: MELATONIN 5 MG TABLETS PO SCH (22:04)
[2023-03-22] MEDS: traZODone HCL 50 MG TABLET (FP) PO SCH (22:05)
[2023-03-22] MEDS: IBUPROFEN 600 MG TABLET (FP) PO PRN (22:08)
[2023-03-23] MEDS: LIDOCAINE 4% PATCH TP SCH (09:34)
[2023-03-23] MEDS: PRENATAL VITAMINS W/ FOLIC ACID TABLET (FP) PO SCH (09:34)
[2023-03-23] MEDS: IBUPROFEN 600 MG TABLET (FP) PO PRN (19:08)
[2023-03-23] MEDS: MELATONIN 5 MG TABLETS PO SCH (21:29)
[2023-03-23] MEDS: THIAMINE HCL 100 MG TABLET (FP) PO SCH (21:30)
[2023-03-23] MEDS: traZODone HCL 50 MG TABLET (FP) PO SCH (21:30)
[2023-03-23] MEDS: LIDOCAINE PATCH REMOVAL MC SCH (21:56)
[2023-03-24 07:11] VITALS: RESP 16
[2023-03-24] MEDS: PRENATAL VITAMINS W/ FOLIC ACID TABLET (FP) PO SCH (10:16)
[2023-03-24] MEDS: IBUPROFEN 600 MG TABLET (FP) PO PRN ×2 (10:17→21:36)
[2023-03-24] MEDS: LIDOCAINE 4% PATCH TP SCH (10:18)
[2023-03-24] MEDS: traZODone HCL 50 MG TABLET (FP) PO SCH (21:35)
[2023-03-24] MEDS: THIAMINE HCL 100 MG TABLET (FP) PO SCH (21:35)
[2023-03-24] MEDS: MELATONIN 5 MG TABLETS PO SCH (21:35)
[2023-03-24] MEDS: LIDOCAINE PATCH REMOVAL MC SCH (21:47)
[2023-03-25 06:55] VITALS: BP 108/61; PULSE 65; TEMP 97.4
[2023-03-25] MEDS: PRENATAL VITAMINS W/ FOLIC ACID TABLET (FP) PO SCH (09:31)
[2023-03-25] MEDS: LIDOCAINE 4% PATCH TP SCH (09:32)
[2023-03-25] MEDS: IBUPROFEN 600 MG TABLET (FP) PO PRN (09:32)
== END 2023-03-25 09:50 | disposition home or self-care (01) | DRG 772 ==
LOC: YASAS 18:18 → Y5N 18:20
PROVIDERS: ADMIT Allergy & Immunology; ATTEND Psychiatry & Neurology Pain Medicine
PROC: HZ42ZZZ Group Counseling for Substance Abuse Treatment, Cognitive-Behavioral (ICD-10-PCS; principal; 2023-03-07)
DX: F10.20 Alcohol dependence, uncomplicated (principal); F12.20 Cannabis dependence, uncomplicated; F17.210 Nicotine dependence, cigarettes, uncomplicated; F31.9 Bipolar disorder, unspecified; F19.280 Other psychoactive substance dependence with psychoactive substance-induced anxiety disorder; F19.282 Other psychoactive substance dependence with psychoactive substance-induced sleep disorder; D50.9 Iron deficiency anemia, unspecified; L29.9 Pruritus, unspecified
CPT/HCPCS: 0241U-QW; 36415; 86803; 87522

== ENCOUNTER 2024-05-30 11:21 | Inpatient (IN) | payer OTHER ==
[2024-05-30 11:53] VITALS: BMI 18.1
[2024-05-30] MEDS ORDERED: BENZONATATE 200 MG CAPSULE PO PRN (12:02)
[2024-05-30] MEDS ORDERED: IBUPROFEN 400 MG TABLET (FP) PO PRN (12:02)
[2024-05-30] MEDS ORDERED: LOPERAMIDE HCL 2 MG CAPSULE PO PRN (12:02)
[2024-05-30] MEDS ORDERED: POLYETHYLENE GLYCOL (HEALTHYLAX) 3350 17 GM PACKET PO PRN (12:02)
[2024-05-30] MEDS ORDERED: hydrOXYzine PAMOATE 25 MG CAPSULE (FP) PO PRN (12:02)
[2024-05-30] MEDS ORDERED: chlordiazePOXIDE HCL 25 MG CAPSULE PO PRN (12:02)
[2024-05-30] MEDS ORDERED: NALOXONE (NARCAN) HCL 4 MG/0.1 ML SPRAY NS PRN (12:02)
[2024-05-30] MEDS ORDERED: BENZOCAINE/MENTHOL (CHLORASEPTIC ) LOZENGE MM PRN (12:02)
[2024-05-30] MEDS ORDERED: MAG HYDROX/AL HYDROX/SIMETH 30 ML UNIT-DOSE CUP PO PRN (12:02)
[2024-05-30] MEDS ORDERED: DICYCLOMINE HCL 10 MG CAPSULE PO PRN (12:02)
[2024-05-30] MEDS ORDERED: IBUPROFEN 600 MG TABLET (FP) PO PRN (12:02)
[2024-05-30] MEDS ORDERED: guaiFENesin 600 MG TABLET.ER (FP) PO PRN (12:02)
[2024-05-30] MEDS ORDERED: ONDANSETRON *ODT* 4 MG TABLET SL PRN (12:02)
[2024-05-30] MEDS ORDERED: PRENATAL VITAMINS W/ FOLIC ACID TABLET (FP) PO ONE (12:37)
[2024-05-30] MEDS ORDERED: chlordiazePOXIDE HCL 25 MG CAPSULE ONE (12:37)
[2024-05-30] MEDS: PRENATAL VITAMINS W/ FOLIC ACID TABLET (FP) PO SCH (12:38)
[2024-05-30] MEDS: chlordiazePOXIDE HCL 25 MG CAPSULE PO ONE (12:39)
[2024-05-30] MEDS: ACAMPROSATE CALCIUM 333 MG TABLET.DR PO SCH (13:19)
[2024-05-30] MEDS: ACETAMINOPHEN 325 MG TABLET (FP) PO PRN (17:02)
[2024-05-30] MEDS: chlordiazePOXIDE HCL 25 MG CAPSULE PO SCH (17:03)
[2024-05-30] MEDS: MELATONIN 5 MG TABLETS PO SCH (22:15)
[2024-05-30] MEDS: THIAMINE 100 MG TABLET PO SCH (22:15)
[2024-05-30] MEDS: traZODone HCL 50 MG TABLET (FP) PO SCH (22:15)
[2024-05-31] MEDS ORDERED: methaDONE HCL 10 MG TABLET PO SCH (06:00)
[2024-05-31] MEDS ORDERED: NALTREXONE HCL 50 MG TABLET PO SCH (10:00)
[2024-05-31] MEDS: NICOTINE 7 MG/24 HOURS TOPICAL PATCH TD SCH (10:20)
[2024-05-31] MEDS: METHOCARBAMOL 500 MG TABLET PO PRN (10:23)
[2024-05-31 17:22] LABS: HEMATOCRIT 40.9 % (32.4-45.2); HEMOGLOBIN 13.2 GM/dL (10.7-15.3); MCH 30.3 pg (25.7-33.7); MCHC 32.3 g/dl (32.0-36.0); MEAN CELL VOLUME 93.7 fl (80-96); MEAN PLT VOLUME 9.5 fl (7.5-11.1); PLATELET COUNT 233 10^3/uL (134-434); RBC 4.36 M/mm3 (3.60-5.2); RDW 14.2 % (11.6-15.6); WHITE BLOOD COUNT 4.2 K/mm3 (4.0-10.0)
[2024-05-31 17:36] LABS: POTASSIUM 4.1 mmol/L (3.5-5.1)
[2024-05-31 17:39] LABS: CALCIUM 9.3 mg/dL (8.5-10.1)
[2024-05-31 17:40] LABS: ALBUMIN 3.5 g/dl (3.4-5.0); BLOOD UREA NITROGEN 14.6 mg/dL (7-18)
[2024-05-31 17:43] LABS: CREATININE 0.9 mg/dL (0.55-1.3)
[2024-05-31 17:45] LABS: BILIRUBIN,TOTAL 0.2 mg/dL (0.2-1)
[2024-05-31] MEDS: BISMUTH SUBSALICYLATE 262 MG/15 ML BTL PO PRN (19:17)
[2024-06-01] MEDS ORDERED: ALBUTEROL SO4 HFA INHALER IH PRN (05:32)
[2024-06-01] MEDS: chlordiazePOXIDE HCL 25 MG CAPSULE PO SCH (06:00)
[2024-06-01] MEDS: diazePAM 5 MG TABLET PO SCH ×2 (10:25→18:15)
[2024-06-01] MEDS: MINERAL OIL/PETROLAT/WATER TOPICAL CREAM 113 GM JAR TP ONE (14:47)
[2024-06-01] MEDS: MINERAL OIL/PETROLAT/WATER TOPICAL CREAM 113 GM JAR TP SCH (21:51)
[2024-06-02] MEDS ORDERED: chlordiazePOXIDE HCL 10 MG CAPSULE PO PRN
[2024-06-02] MEDS: MAGNESIUM HYDROX 2400MG/30ML ORAL SUSPENSION 30 ML CUP PO PRN (03:46)
[2024-06-02] MEDS ORDERED: chlordiazePOXIDE HCL 10 MG CAPSULE PO SCH (05:00)
[2024-06-02] MEDS: diazePAM 5 MG TABLET PO SCH (05:36)
[2024-06-02] MEDS: COLLOIDAL OATMEAL 1 EACH PACKET TP SCH (11:19)
[2024-06-03 00:32] LABS: URINE COLOR YELLOW
[2024-06-03 00:33] LABS: PH,URINE 6.5 (5.0-8.0); URINE APPEARANCE CLEAR; URINE BILIRUBIN NEGATIVE (NEGATIVE); URINE GLUCOSE (UA) NEGATIVE (NEGATIVE); URINE KETONE NEGATIVE (NEGATIVE); URINE PROTEIN NEGATIVE (NEGATIVE)
[2024-06-03 00:34] LABS: URINE LEUK ESTERASE NEGATIVE (NEGATIVE); URINE NITRITE NEGATIVE (NEGATIVE); URINE UROBILINOGEN 0.2 mg/dL (0.2-1.0)
[2024-06-03] MEDS ORDERED: chlordiazePOXIDE HCL 10 MG CAPSULE PO SCH (05:00)
[2024-06-03] MEDS: diazePAM 5 MG TABLET PO SCH (06:12)
[2024-06-04] MEDS ORDERED: chlordiazePOXIDE HCL 10 MG CAPSULE PO ONE (05:00)
[2024-06-04] MEDS: diazePAM 5 MG TABLET PO ONE (06:17)
[2024-06-04 08:48] VITALS: BP 112/69; PULSE 72; RESP 18; TEMP 97.5
== END 2024-06-04 10:48 | disposition home or self-care (01) | DRG 773 ==
LOC: YASAS 11:21 → Y3N 12:17
PROVIDERS: ADMIT Allergy & Immunology; ATTEND Allergy & Immunology
PROC: HZ2ZZZZ Detoxification Services for Substance Abuse Treatment (ICD-10-PCS; principal; 2024-05-30)
DX: F10.230 Alcohol dependence with withdrawal, uncomplicated (principal); F14.20 Cocaine dependence, uncomplicated; F11.20 Opioid dependence, uncomplicated; F17.210 Nicotine dependence, cigarettes, uncomplicated; F19.24 Other psychoactive substance dependence with psychoactive substance-induced mood disorder; F31.9 Bipolar disorder, unspecified; F41.9 Anxiety disorder, unspecified; J45.20 Mild intermittent asthma, uncomplicated; R39.15 Urgency of urination; R63.4 Abnormal weight loss; Z68.1 Body mass index [BMI] 19.9 or less, adult; Z62.810 Personal history of physical and sexual abuse in childhood; Z63.0 Problems in relationship with spouse or partner; Z86.69 Personal history of other diseases of the nervous system and sense organs
CPT/HCPCS: 36415; 80053; 80305; 80307; 81003; 85027; 86780; 93005; 93010